=== PATIENT | female | born 1935 | race Caucasian/White ===

== ENCOUNTER 2016-05-14 12:26 | Inpatient (IN) | payer MEDICARE, OTHER ==
[~2016-05-14] VITALS: Ht 170.2 cm; Wt 73.9 kg
[2016-05-14] VITALS (9 sets, daily range): BP systolic 130–150; BP diastolic 65–96; PULSE 85–126; RESP 13–28; O2SAT 89–98
[~2016-05-14 12:26] MED LIST: ALEN35TA31 PO; ASPI-628 PO; ATOR20TA65 PO; CHOL100043 PO; Calcium PO; IRON; LEVO112T4 PO; LIOT5TAB3 PO; MAGN400C PO; MULT-1007 PO; VENL225T3 PO
--- NOTE | 2016-05-14 13:16 | ED.REPORT ---
HPI-General Illness Date of Service May 14, 2016 ED Provider: Dimitri Alford MD 80 year old female with a history of COPD presents to the ER with two weeks of acute on chronic shortness of breath, exacerbated with minimal exertion. Symptoms are relieved with rest. She also states that standing and ambulating elicits increased HR. Associated subjective fever two days ago, now resolved. Patient denies chest pain, cough, lower extremity pain/swelling, and recent immobilization/travel. In mid February 2016 she was treated for COPD, and states that her current symptoms feel similar to her typical COPD exacerbation. Patient is a tangential historian. Nursing Notes Stated Complaint: SHORTNESS OF BREATH Chief Complaint: Respiratory Distress Nursing Notes Reviewed: Yes Allergies: Coded Allergies: Penicillins (Verified Allergy, Unknown, 05/14/16) AMOXOCILLIN amoxicillin (Verified Allergy, Unknown, Rash, 05/14/16) Scheduled Aspirin (Aspirin) 81 Mg Tablet 81 MG PO HS Atorvastatin Calcium (Atorvastatin Calcium) 20 Mg Tablet 20 MG PO HS Budesonide/Formoterol 160-4.5 mcg Inh (Symbicort 160-4.5 mcg Inh) 120 Puff Inhaler 2 PUFF INHALATION BID Calcium Carbonate (Calcium) 600 Mg Tablet 600 MG PO DAILY Cyclosporine (Restasis) 1 Each Droperette 1 EACH OP BID Ferrous Sulfate (Iron) 325 Mg Tablet 625 MG PO DAILY Ipratropium/Albuterol Sulfate (Iprat-Albut 0.5-3(2.5) mg/3 mL Inhalant Soln) 3 Ml Ampul.neb 3 ML IH TID to QID Levothyroxine (Levothyroxine) 137 Mcg Tablet 137 MCG PO DAILY Liothyronine Sodium (Liothyronine Sodium) 5 Mcg Tablet 5 MCG PO DAILY Magnesium Oxide (Magnesium) 500 Mg Capsule 500 MG PO HS Multivitamin (Once Daily) 1 Each Tablet 1 EACH PO DAILY Omeprazole (Omeprazole) 20 Mg Capsule.dr 20 MG PO BID Polyvinyl Alcohol/Povidone/Pf (Refresh Classic Eye Drops) 1 Each Droperette 1 EACH OP BID Venlafaxine ER (Venlafaxine ER) 150 Mg Tab.er.24 150 MG PO HS Scheduled PRN Albuterol HFA (Proair HFA) 8.5 Gm Hfa.aer.ad 2 PUFFS INHALATION Q4H PRN PRN For Shortness of Breath General Time Seen by MD: 13:11 Chief Complaint Other (Shortness of Breath) Hx Obtained From: Patient Arrived By: Walk-in Sudden in Onset?: No Onset Occurred: More than a week ago... (2 weeks) Symptom Duration: Constant Associated with: Reports: Fever (Subjective), Denies: Chest pain, Cough Pertinent Negative: Pt denies other symptoms Relieved by: Rest Context Related History: Reports COPD Similar Sx Previous: Yes Past Medical History Past Medical History Aortic Aneurysm Reports: COPD, Denies: Congestive heart failure Reports: Thyroid disease (Hypothyroid) Past Surgical History Reports: Cholecystectomy Reports: Knee replacement (Left) Smoking History Never Smoker Social History Other Social History: Good social support Ambulatory Status Independent Review of Systems Full Review of Systems Constitutional: Reports: Fever (Subjective) Respiratory: Reports: Dyspnea on exertion, Shortness of breath, Denies: Non-productive cough Cardiovascular: Denies: Chest pain GI: Denies: Nausea, Vomiting Musculoskeletal: Denies: Back pain, Extremity pain, Extremity swelling Neurologic: Denies: Headache Complete sys rev & neg: except as marked. Physical Exam Vital Signs Vital Signs Date Time Temp Pulse Resp B/P Pulse Ox O2 Delivery O2 Flow Rate FiO2 05/14/16 12:28 36.2 105 20 145/96 98 Room Air Initial VS: Reviewed Head / Eyes: Atraumatic, Normocephalic Neck: Supple, Non-tender, Full range of motion Abdomen / GI: Soft, Non-tender, No guarding, No rebound, No distention Extremities: Vascular intact, Neuro intact, No swelling, No tenderness Skin: Warm, Dry, No cyanosis Neurologic: Alert, Oriented, Nonfocal Psychiatric: Mood/affect normal, Behavior normal, Normal thought content Respiratory / Chest: No chest tenderness, No chest wall deformity Diminished Breath Sounds: Positive: Decreased bilateral (Significant) Cardiovascular: Heart rate NL, Regular rhythm, Heart sounds NL, Cap refill not delayed, Peripheral circulation NL Interpretation & Diagnostics Lab Results Interpretation Result Diagram: 05/14/16 1405 05/14/16 1405 Test 05/14/16 14:05 White Blood Count 16.3th/mm3 (3.8-10.1) Red Blood Count 4.06mil/mm3 (3.90-5.20) Hemoglobin 12.4g/dL (12.0-15.6) Hematocrit 37.3% (35.0-46.0) Mean Corpuscular Volume 91.9fL (81-100) Mean Corpuscular Hemoglobin 30.5pg (27.0-35.0) Mean Corpuscular Hemoglobin Concent 33.2% (32.0-37.0) Red Cell Distribution Width 13.3% (12.3-15.4) Platelet Count 325bil/L (150-400) Neutrophils (%) (Auto) 77.3% (40-74) Lymphocytes (%) (Auto) 10.6% (14-46) Monocytes (%) (Auto) 10.3% (4-12) Eosinophils (%) (Auto) 0.1% (0-5) Basophils (%) (Auto) 0.4% (0-3) Sodium Level 137mEq/L (134-144) Potassium Level 4.8mEq/L (3.5-5.2) Chloride Level 97mEq/L (97-108) Carbon Dioxide Level 24mmol/L (18-29) Blood Urea Nitrogen 23mg/dL (8-27) Creatinine 0.86mg/dL (0.57-1.00) Estimat Glomerular Filtration Rate 91mL/min (>59) Glucose Level 106mg/dL (60-99) Calcium Level 9.6mg/dL (8.5-10.1) Total Bilirubin 0.5mg/dL (0.0-1.2) Aspartate Amino Transf (AST/SGOT) 20U/L (0-50) Alanine Aminotransferase (ALT/SGPT) 24U/L (0-32) Alkaline Phosphatase 80U/L (25-165) Troponin T < 0.010ug/L (0.0-0.011) Pro-B-Type Natriuretic Peptide 54.20pg/mL (0-738) Total Protein 7.1g/dL (6.4-8.4) Albumin 4.2g/dL (3.4-5.0) Hold Bowman Top Tube Received (Received) ECG Interpretation ECG Interpretation: Sinus rhythm, rate [address] segment elevation No acute T wave abnormalities Overall poor quality ECG No prior ECG available for comparison Time: 14:25 Interpreted by: ED physician X-Ray Chest Interpretation Chest Xray Interpretation: IMPRESSION: 1. Scattered small bilateral indistinct opacity suggestive of scarring. Consider followup in 3-6 months to demonstrate stability. 2. Findings compatible with COPD. Dictated by: Héctor Schaefer M.D. on 05/14/2016 at 13:17 Approved by: Héctor Schaefer M.D. on 05/14/2016 at 13:27 View: AP & lat Interpretation / Wet Read by: Interpret - Radiologist Re-Eval/Medical Decision Med Decision/Clinical Course 80 year old female with a history of COPD presents to the ER with two weeks of acute on chronic shortness of breath, exacerbated with minimal exertion. Symptoms are relieved with rest. She also states that standing and ambulating elicits increased HR. Associated subjective fever two days ago, now resolved. Patient denies chest pain, cough, lower extremity pain/swelling, and recent immobilization/travel. In mid February 2016 she was treated for COPD, and states that her current symptoms feel similar to her typical COPD exacerbation. Patient is a tangential historian. Upon arrival the patient is tachycardic with a heart rate of 120 and appears in moderate respiratory distress. She initially has good oxygen saturation on room air while at rest. EKG was obtained and interpreted by myself as documented above. CXR was obtained as below: 1. Scattered small bilateral indistinct opacity suggestive of scarring. Consider followup in 3-6 months to demonstrate stability. 2. Findings compatible with COPD. Patient received the below medications: 1L IV fluids 125mg methylprednisolone DuoNeb x2 Laboratory studies were normal as below: Leukocytosis 16.3 CBC normal otherwise Chemistry normal Troponin negative BNP WNL Initially the patient had very poor air movement bilaterally. This improved after nebulizer treatments and steroids though she continued to be in moderate respiratory distress with significant wheezing. Patient was ambulated on pulse oximetry and reported significant dyspnea on exertion with oxygen desaturation into the mid 80s. Overall presentation is at this time consistent with severe COPD exacerbation. I feel that she requires admission at this time. Initial workup for acute coronary syndrome is reassuring. No evidence of pulmonary edema or elevated BNP suggestive of congestive heart failure. Presentation of suggestive of pulmonary embolism. Patient discussed with admitting hospitalist accepted for further management. Source of Hx: Old records Time of Eval: 14:43 Re-Evaluation/Progress Note: Patient is now accompanied by her daughter and a female friend. Updated the daughter on the patient's case and plan of care. Discussed lab and radiology results and need for admission pending road test. Patient is amenable to the plan. All other questions addressed. Consultation : Referral / Consult Name: Anant Weems MD Consulted With: Hospitalist Call Returned at: 15:58 Health Information Systems Technician: Agrees with eval, Agrees with plan, Accepts admit Counseled Regarding: Diagnosis, Lab results, Need for admission Discharge & Departure Primary Impression: COPD with acute exacerbation Additional Impressions: Respiratory distress Hypoxia Disposition: ADMITTED TO HOSPITAL Discharge Condition All VS Reviewed: Yes Condition: Stable Referrals: Rin Escobedo (PCP) Crit Care Except Billable Proc Time Spent: 75-104 minutes Services Performed: Patient management by me, Time spent at bedside, Reviewing test results, Reviewing imaging, Discussing patient care, Documentation in record Scribe Attestation Portions of this note were transcribed by Candi Parker. I, Dr. Alford, personally performed the history, physical exam and medical decision-making; I reviewed and confirmed the accuracy of the information in the transcribed note. Signed by: Catarino Madrid, 05/14/2016 and 15:58 copies to: Rin Escobedo Beck O MD May 14, 2016 13:16 CANDI PARKER May 14, 2016 14:15
--- NOTE | 2016-05-14 13:28 | DRSVH ---
PROCEDURE: X-RAY CHEST, TWO VIEWS ([id number]) INDICATIONS: SHORTNESS OF BREATH TECHNIQUE: 2 views of the chest were acquired. COMPARISON: [facility], CT, CHEST HI-RESOLUTION, 07/24/2013, 9:07. [facility] l, CT, ABD/PELVIS W/CON (PNL), 10/29/2013, 16:37. [facility], CR, CHEST 2VW, 01/16/2012, 2:40 PM. [facility], CR, CHEST 2VW, 02/24/2013, 11:29 AM. [facility], CR, XR CHEST 2VW, 03/12, 17:51. FINDINGS: Surgical changes and devices: None. Lungs and pleura: No pleural effusions or pneumothorax. There are a few indistinct scattered bilate ral opacities in the lung bases which appear similar to the prior studies suggestive of scarring. A small indistinct opacity in the left midlung zone appears slightly increased and may also represent s carring versus an infectious or inflammatory process. There is hyperinflation of the lungs with flat tening of the hemidiaphragms compatible with COPD. No acute consolidation. Mediastinum: Mediastinal contours are normal. Heart size is normal. Bones and chest wall: No suspicious bony abnormalities. Soft tissues appear unremarkable. IMPRESSION: 1. Scattered small bilateral indistinct opacity suggestive of scarring. Consider followup in 3-6 mo nths to demonstrate stability. 2. Findings compatible with COPD. Dictated by: Héctor Schaefer M.D. on 05/14/2016 at 13:17 Approved by: Héctor Schaefer M.D. on 05/14/2016 at 13:27
[2016-05-14 14:19] LABS: BASOPHILS % (AUTO) 0.4 % (0-3); EOSINOPHILS % (AUTO) 0.1 % (0-5); MONOCYTES % (AUTO) 10.3 % (4-12); Mean Corpuscular Hemoglobin 30.5 pg (27.0-35.0); Mean Corpuscular Volume 91.9 fL (81-100); NEUTROPHILS % (AUTO) 77.3 % (40-74); Platelet Count 325 bil/L (150-400)
[2016-05-14] MEDS ORDERED: 0.9% Sodium Chloride 1,000 ML IV ONE (14:20)
[2016-05-14] MEDS ORDERED: Albuterol-Ipratropium 3 mL Inhalation Solution NEB SCH (14:20)
[2016-05-14] MEDS ORDERED: MethylprednisoLONE Sodium Succinate 62.5 mg/mL 2 mL Inj IVPUSH ONE (14:20)
[2016-05-14] MEDS ORDERED: Albuterol-Ipratropium 3 mL Inhalation Solution NEB ONE (14:20)
[2016-05-14 14:43] LABS: TROPONIN T < 0.010 ug/L (0.0-0.011)
[2016-05-14] MEDS ORDERED: Polyethylene Glycol (PEG) 17 Gm Powder PO PRN (16:05)
[2016-05-14] MEDS ORDERED: Alum-Mag Hydrox-Simeth 30 mL Suspension PO PRN (16:05)
[2016-05-14] MEDS ORDERED: Ondansetron 2 mg/mL 2 mL Inj IVPUSH PRN (16:05)
--- NOTE | 2016-05-14 16:20 | NUR ---
Report called from ED nurse. Pt arrived via wc, transferred to bed safely SBA. Pt states she is feeling a bit light of head. She is having hot and cold spurts. Afebrile. Tele placed on pt. SR 60s.
[2016-05-14] MEDS: Albuterol-Ipratropium 3 mL Inhalation Solution NEB SCH ×2 (16:30→19:54)
[2016-05-14] MEDS: Heparin 5,000 Unit/mL Inj SUBQ SCH (17:53)
[2016-05-14] MEDS ORDERED: ASPI-973 PO (18:00)
[2016-05-14] MEDS ORDERED: MAGN500C4 PO (18:00)
[2016-05-14] MEDS ORDERED: MULT-666 PO (18:00)
[2016-05-14] MEDS ORDERED: POLY1DRO OP (18:00)
[2016-05-14] MEDS ORDERED: SYMINH INHALATION (18:00)
[2016-05-14] MEDS ORDERED: LEVO137T2 PO (18:00)
[2016-05-14] MEDS ORDERED: CYCL1DRO OP (18:00)
[2016-05-14] MEDS ORDERED: FERR325T39 PO (18:00)
[2016-05-14] MEDS ORDERED: VENL150T3 PO (18:00)
[2016-05-14] MEDS ORDERED: ALBU8.5H2 INHALATION (18:00)
[2016-05-14] MEDS ORDERED: IPRA3AMP IH (18:00)
[2016-05-14] MEDS ORDERED: OMEP20CA11 PO (18:00)
[2016-05-14] MEDS ORDERED: CALC600T12 PO (18:00)
[2016-05-14 18:31] LABS: APPEARANCE,URINE CLEAR (CLEAR,HAZY); COLOR,URINE YELLOW (YELLOW); OCCULT BLOOD,URINE TRACE (NEGATIVE); UROBILINOGEN,URINE NORMAL (NORMAL)
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
[2016-05-15] VITALS (14 sets, daily range): BP systolic 112–152; BP diastolic 57–74; PULSE 72–102; RESP 16–20; O2SAT 90–97
[2016-05-15] MEDS: Albuterol-Ipratropium 3 mL Inhalation Solution NEB SCH ×6 (00:14→20:27)
[2016-05-15] MEDS: Heparin 5,000 Unit/mL Inj SUBQ SCH ×4 (00:30→23:59)
--- NOTE | 2016-05-15 06:19 | NUR ---
Comfort / mobility Pt continues to have episodes of sweating without fever, pt is uncomfortable, denies pain. Placed on O2 to maintain sat>92%, pulse oximetry; denies SOB. Ambulating to BR with steady gait, appropriate and reliable with call light. Hourly rounding ongoing.
[2016-05-15] MEDS ORDERED: Ipratropium 0.02% 0.5 mg/2.5 mL Inhalation Solution NEB ONE (07:57)
[2016-05-15] MEDS ORDERED: Albuterol 2.5 mg/3 mL Inhalation Solution NEB ONE (07:57)
[2016-05-15] MEDS: predniSONE 20 mg Tablet PO SCH (10:58)
--- NOTE | 2016-05-15 11:56 | CONS ---
[address] [address] CONSULTATION REPORT PATIENT: SANTA DACOSTA : 1935 MR#: [id number] ADMIT: 05/14/2016 JOB ID: [id number] DATE OF SERVICE: 05/15/2016 PULMONARY CONSULTATION: REQUESTING PHYSICIAN: Anant Weems MD REASON FOR CONSULTATION: Acute exacerbation of COPD. HISTORY OF PRESENT ILLNESS: The patient is a 80-year-old female with known COPD who has been getting slowly worse over a year or so. No acute problems. However, in February of this year she developed some increasing shortness of breath. No particular change in terms of cough or sputum production; she just noted that she had more difficulty accomplishing tasks, especially walking her dog, negotiating 20 steps downstairs, and drying her hair after washing it. Also had more problems making the bed. She also noted that her walking tolerance decreased significantly even when stairs were not involved. Was on a few courses of prednisone during this time. Continued using her nebulizer with albuterol. Rare use of ProAir inhaler. Also continued using Spiriva and Symbicort. About four or five days ago she developed chills, had a temperature of 101, and had increasing shortness of breath. No particular change in cough or sputum production. No headache. No sore throat. No rash. No swelling in her legs. Symptoms continued to worsen. Did not have any recurrence of the chills; however, on admission in the emergency department she noticed some chilling and has had a few chills while in the ED. The patient lives in an independent care facility but she is exposed to 60 other residents. All of the other residents are ill with various infections. The patient states she did get her influenza vaccine this year in October. Has had pneumococcal pneumonia 23 vaccine but is scheduled for the pneumococcal pneumonia 13 vaccine. PAST MEDICAL HISTORY: Abdominal aortic aneurysm in need of surgical repair some time in the future. REVIEW OF SYSTEMS: No anginal type chest pain. No chest pain per se. No abdominal pain. Eating fairly well. Weight stable. No difficulty swallowing. No heartburn, though she was recently changed from omeprazole for some concern about GI symptoms. Also suffers from hypothyroidism; that recently was checked and the level increased somewhat. Osteoporosis. Hyperlipidemia. Noted to have peripheral vascular disease in the carotids. FAMILY HISTORY: The patient is adopted. However, she did recently get in touch with her biologic family. Mother of an abdominal aortic aneurysm and brother has an abdominal aortic aneurysm. TOBACCO USE: The patient smoked one pack a day for about 40 years, quitting about 10 years ago. TRAVEL HISTORY: None. SOCIAL HISTORY: The patient lives in her own unit in this assisted living care arrangement. Describes herself as a sedentary. Takes her dog for a walk. No hobbies which expose her to dust, fumes, or solvents. PETS: Dog. 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 OBJECTIVE: Temperature 36.4, pulse 81, respiratory rate 16, blood pressure 136/74, O2 sat on 2 L is 95%. General appearance: Well-developed, well-nourished female sitting in bed. Occasionally quite tearful. Eyes: Conjunctivae pink and moist. Nose: Mild erythema. No edema. Throat: Good oral hygiene. Uvula deshawn in the oropharynx. No oropharyngeal candidiasis. Lymph nodes are not palpable. Thyroid not palpable. Chest: Normal resonance to percussion. Fairly good breath sounds bilaterally. Some scattered crackles mostly at the bases. No use of accessory muscles at rest. Heart: Regular rhythm. Heart tones normal. No S3 or murmur. Abdomen: Soft. Nondistended. Nontender. Liver and spleen not palpable. No masses palpable. Bowel tones present. Extremities: No clubbing, cyanosis, or pretibial edema. Good dorsalis pedis on the right, less so on the left, but good posterior tibials. IMAGING: Chest x-ray shows hyperinflation. There are increased interstitial markings throughout both lung martinez. LABORATORY DATA: Shows a white count of 16,300, 77 polymorphonuclears, 10 lymphs, 10 monocytes. Hemoglobin 12.4. Platelet count 324,000. Lytes are normal. Creatinine 0.8. BUN 23. Calcium is 9.6. Albumin 4.2. Transaminases: Total bilirubin and alkaline phosphatase normal. ProBNP is 54. Troponin-T is undetectable. ASSESSMENT: Chronic obstructive pulmonary disease. Apparently acute exacerbation. Did have chills. The viral respiratory panel is negative. Mycoplasma negative as well. The chest x-ray is a bit "dirtier" than one would expect with pure COPD. However, that has been a somewhat chronic finding and she has a high-resolution CT scan from 2014 which shows some upper lobe emphysematous changes and no other particular problems. Looks a little bit inflammatory to my eye, with maybe some tree in bud changes, but no particular problems. Will need spirometry to tell us where we are in terms of her current function. Will continue on her current medicines. She will need possibly a repeat CT, but that will remain to be seen, depending on pulmonary function tests. She will also need evaluation of O2 needs with exertion. She will need to be instructed in correct use of the inhalers and the spacers. Depending on finances may consider stopping her Spiriva and adding ipratropium to the nebulizer. Much more time-consuming but maybe a cost saving as she has new insurance and not sure if the Spiriva is covered. May need to consider pulmonary rehabilitation as an outpatient. In addition, she does have decreasing exercise tolerance, more short of breath. I think it would be useful to assess left ventricular cardiac function and right-sided cardiac pressures to see if she might be developing pulmonary arterial hypertension. PLAN: 1. Spirometry before and after bronchodilators. 2. Have RT check her use of the inhalers and the spacers. 3. Check O2 requirements with exertion. Might need a nocturnal oxygen study. 4. Echocardiogram to assess LV function as well as RV pressures. 5. Consider pulmonary rehab as an outpatient. Thank you so much, Dr. Weems, for asking us asking us to see this most interesting individual. I will follow her respiratory status closely along with you.
--- NOTE | 2016-05-15 15:17 | PCM.PNMED ---
Subjective Date of Service May 15, 2016 Subjective Patient doing well this morning. Patient is very anxious about the progression of her illness and was in tears. Patient was reassured that her hospital course would be short and that she would be seen by a public works manager before discharge. Patient is otherwise stable. Exam Vital Signs Vital Sign - Last Date Time Temp Pulse Resp B/P Pulse Ox O2 Delivery O2 Flow Rate FiO2 05/15/16 14:50 36.3 83 16 116/67 94 Room Air 05/15/16 08:13 2.00 Intake and Output 05/14/16 05/14/16 05/15/16 Cumulative From/Thru 15:00 23:00 07:00 05/14/16 12:28 - 05/15/16 05:06 Intake Total 1000 ml 200 ml 720 ml 1920 ml Output Total 450 ml 400 ml 850 ml Balance 1000 ml -250 ml 320 ml 1070 ml Intake Oral 200 ml 720 ml 920 ml IV Total 1000 ml 1000 ml Output Urine Total 450 ml 400 ml 850 ml # Voids 2 2 # Bowel Movements 0 0 Exam Exam General: No acute distress, well-developed, well-nourished, appropriately interactive HEENT: Normocephalic, atraumatic. External ears without defect. Pupils equal, round, and reactive to light and accommodation. Moist conjunctivae. Oropharynx with moist mucosa. Neck: Supple with full range of motion.No lymphadenopathy Cardiovascular: Regular rate and rhythm with no murmurs, rubs, or gallops appreciated Pulmonary: Clear to auscultation bilaterally some scattered wheezes. Good air exchange. Normal respiratory effort with no use of accessory muscles. Abdomen: Bowel tones present. Soft, nontender, nondistended. Ext: No edema or loss of motor/.sensory function Lab and Diagnostics Result Diagram: 05/14/16 1405 05/14/16 1405 X-Rays, CTs and MRIs X-RAY CHEST, TWO VIEWS 05/14 IMPRESSION: 1. Scattered small bilateral indistinct opacity suggestive of scarring. Consider followup in 3-6 months to demonstrate stability. 2. Findings compatible with COPD. Dictated by: Héctor Schaefer M.D. on 05/14/2016 at 13:17 Approved by: Héctor Schaefer M.D. on 05/14/2016 at 13:27 Assessment & Plan Nadira La is a 80 year old female with COPD, AAA, Hypothyroidism who presents to [facility] emergency department with two weeks of dyspnea and coughing 1. Acute COPD exacerbation. Present on admission Likely due to a viral respiratory infection. - systemic steroids, tapered o Prednisone 40 mg daily - c/w azithromycin - will follow up Blood cultures - scheduled DuoNeb treatments - Pulm consult appreciated- will follow up results of echo and pfts 2. Hyperlipidemia - continue Lipitor 20 mg daily 3. Hypothyroidism -continuing Liothyronine 5 mcg daily 4 Depression - continuing Effexor daily 5 Aortic aneurysm with Peripheral vascular disease. Last February, imaging confirmed the Aneurysm size has meet criteria for repair - referral to [facility] for repair - continue Aspirin daily for antiplatelet therapy - maintain good BP control - Acetaminophen as needed for mild pain/fever/headache - Bowel regimen as needed - Antiemetic as needed Patient admitted under inpatient status with expected length of stay > 2 midnights for severity of present symptoms, complexities of treatment plan and risk for adverse event . VTE Mechanical Devices: Intermittant Pneumatic CD Resuscitation Status: CPR: Attempt Resuscitation Shen Garcia MD May 15, 2016 15:17
--- NOTE | 2016-05-15 17:08 | NUR ---
Case Management: Attempted to provide IMM at 1538, pt having an Echo. Will try again later. Gordon Hayes RN Addendum: 05/15/16 at 2105 by GORDON HAYES Explained IMM to patient at 2039, all questions answered. Signed original in chart, copy given to patient. Gordon Hayes RN
--- NOTE | 2016-05-15 17:59 | DRSVH ---
[facility] [address] [place] [address] Echocardiogram Report Name: SANTA DACOSTA HStudy Date: 05/15/2016 Height: 67 in Hospital Exam Location: [facility] Weight: 162 lb Gender: Female BSA: 1.8 m2 : 1935 Age: 80 yrs BP: 136/74 mm Hg Reason For Study: Dyspnea History: COPD Ordering Physician: Micah Tran Performed By: Constance Kaufman Referring Physician: Alem Fuller Interpretation Summary The left ventricle is normal in size. Left ventricular wall thickness is borderline increased. The ejection fraction is estimated to be 60-65%. Assessment of diastolic parameters indicates a relaxation abnormality of the left ventricle, consistent with normal filling pressures. The right ventricle is normal in size and function. Pulmonary artery pressures cannot be estimated because of the lack of a measurable TR jet velocity. The IVC is of normal diameter and collapses greater than 50% with a sniff. This suggests a low right atrial pressure of 3 mm Hg. There is no significant valvular heart disease. No other echocardiographic abnormalities seen. Compared to the prior echo report on 07/02/2013, there is no significant change. Procedure: A two-dimensional transthoracic echocardiogram with color flow and Doppler was performed. The study quality was technically adequate. Comparison is made with the echocardiogram of 07/02/2013. The patient was in normal sinus rhythm during the exam. Left Ventricle: The left ventricle is normal in size. Left ventricular wall thickness is borderline increased. The ejection fraction is estimated to be 60-65%. Assessment of diastolic parameters indicates a relaxation abnormality of the left ventricle, consistent with normal filling pressures. Right Ventricle: The right ventricle is normal in size and function. Atria: The left atrium is borderline dilated. Right atrial size is normal. There is no Doppler evidence for an interatrial shunt. Mitral Valve: There is mild mitral annular calcification. The mitral valve leaflets are mildly calcified. Tricuspid Valve: Pulmonary artery pressures cannot be estimated because of the lack of a measurable TR jet velocity. Pulmonic Valve: The pulmonic valve is not well seen, but is grossly normal. Great Vessels: The inferior vena cava appeared normal. The IVC is of normal diameter and collapses greater than 50% with a sniff. This suggests a low right atrial pressure of 3 mm Hg. Pericardium/ Pleura There is no pericardial effusion. MMode/2D Measurements & Calculations LVIDd: 3.9 cm LA A2 area RA long axis LVOT diam: 2.2 cm IVSd: 1.1 cm AoV Openin.9 cm LVPWd: 0.78 cm RA area Ao root diam: 3.3 cm LA A4 area Aortic Jxn: 2.7 cm : 12.9 cm asc Aorta Diam LA length (vol) RA vol: 29.6 ml RA Ao Arch Diam (Prox LA vol: 63.7 ml : 16.0 mm2 Trans): 2.5 cm LA vol index IVC diam: 1.4 cm LV martinez. diameter/BSA RVD1 (basal) TAPSE: 2.5 cm (cm/m^2): 2.1 Doppler Measurements & Calculations Ao V2 max MV E max jeremiah MV E/A: 0.69 PA V2 max : 132.4 cm/sec : 98.0 cm/sec Med Peak E' Jeremiah : 102.4 cm/sec Ao max PG MV A max jeremiah PA mean PG : 7.0 mmHg : 141.1 cm/sec E/E' med: 15.1 Ao mean PG MV P1/2t: 110.9 msec Lat Peak E' Jeremiah PA Accel Time : 0.10 sec LVOT Max Jeremiah E/E' lat: 12.8 : 102.9 cm/sec E/e' average: 13.9 Pulm A Revs Dur KIERAN(I,D): 3.8 cm sev ratio MV A dur: 0.12 sec MV dec time MV P1/2t max jeremiah Ao V2 mean LV V1 max PG : 0.38 sec : 77.0 cm/sec MVA(P1/2t): 2.0 cm2 Ao V2 VTI: 24.8 cm LV V1 VTI KIERAN(V,D): 3.0 cm2 : 24.7 cm PA V2 mean KIERAN indexed to BSA Pulm Kelley Revs Dur - MV : 69.2 cm/sec (cm^2/m^2): 2.1 A Dur: 0.00 msec Reading Physician:05:58 PM
--- NOTE | 2016-05-15 19:01 | NUR ---
anxiety pt having severe anxiety, jittery, pacing, teary and emotional. She blames the Prednisone she took this am. Call to Dr Garcia, he gave order for PRN Lorazepam which was very helpful for her
[2016-05-15] MEDS: Venlafaxine XR 75 mg ER24 Capsule PO SCH (21:39)
[2016-05-16] VITALS (9 sets, daily range): BP systolic 123–144; BP diastolic 64–73; PULSE 80–98; RESP 16–20; O2SAT 94–98
--- NOTE | 2016-05-16 05:04 | NUR ---
Respiratory At HS pt became very SOB with elevated HR after return from [place]. Worked with pursed lip breathing until improved. Oximetry shows intermittent desat to low 80s after falling asleep, placed on 1 L O2. Hourly rounding ongoing.
[2016-05-16] MEDS: Albuterol-Ipratropium 3 mL Inhalation Solution NEB SCH ×5 (05:40→19:31)
[2016-05-16 06:08] LABS: BASOPHILS % (AUTO) 0.1 % (0-3); EOSINOPHILS % (AUTO) 0.1 % (0-5); MONOCYTES % (AUTO) 9.6 % (4-12); Mean Corpuscular Hemoglobin 30.8 pg (27.0-35.0); Mean Corpuscular Volume 93.9 fL (81-100); NEUTROPHILS % (AUTO) 78.6 % (40-74); Platelet Count 343 bil/L (150-400)
[2016-05-16] MEDS: predniSONE 20 mg Tablet PO SCH (08:43)
[2016-05-16] MEDS: Heparin 5,000 Unit/mL Inj SUBQ SCH ×2 (08:54→17:15)
--- NOTE | 2016-05-16 12:18 | PCM.PNMED ---
Subjective Date of Service May 16, 2016 Subjective Pt seen and examined this morning. Patients symptoms are improved however patient is still anxious about going home alone. Patients respiratory symptoms have dissipated however patient becomes very anxious and has a difficult time breathing as a result.Patient is otherwise doing well. Exam Vital Signs Vital Sign - Last Date Time Temp Pulse Resp B/P Pulse Ox O2 Delivery O2 Flow Rate FiO2 05/16/16 09:24 80 16 95 Room Air 05/16/16 09:03 134/70 05/16/16 05:54 37.0 05/16/16 05:46 2.00 Intake and Output 05/15/16 05/15/16 05/16/16 Cumulative From/Thru 15:00 23:00 07:00 05/14/16 12:28 - 05/16/16 05:53 Intake Total 640 ml 1050 ml 3610 ml Output Total 650 ml 850 ml 2350 ml Balance -10 ml 200 ml 1260 ml Intake Oral 640 ml 1050 ml 2610 ml IV Total 1000 ml Output Urine Total 650 ml 850 ml 2350 ml # Voids 2 # Bowel Movements 0 0 0 Exam General: No acute distress, well-developed, well-nourished, appropriately interactive HEENT: Normocephalic, atraumatic. External ears without defect. Pupils equal, round, and reactive to light and accommodation. Moist conjunctivae. Oropharynx with moist mucosa. Neck: Supple with full range of motion.No lymphadenopathy Cardiovascular: Regular rate and rhythm with no murmurs, rubs, or gallops appreciated Pulmonary: Clear to auscultation bilaterally some scattered wheezes. Good air exchange. Normal respiratory effort with no use of accessory muscles. Abdomen: Bowel tones present. Soft, nontender, nondistended. Ext: No edema or loss of motor/.sensory function Lab and Diagnostics Result Diagram: 05/16/1652405/16/16 0525 X-Rays, CTs and MRIs X-RAY CHEST, TWO VIEWS 05/14 IMPRESSION: 1. Scattered small bilateral indistinct opacity suggestive of scarring. Consider followup in 3-6 months to demonstrate stability. 2. Findings compatible with COPD. Dictated by: Héctor Schaefer M.D. on 05/14/2016 at 13:17 Approved by: Héctor Schaefer M.D. on 05/14/2016 at 13:27 Assessment & Plan Nadira La is a 80 year old female with COPD, AAA, Hypothyroidism who presents to [facility] emergency department with two weeks of dyspnea and coughing 1. Acute COPD exacerbation. Present on admission Likely due to a viral respiratory infection. - systemic steroids, tapered to Prednisone 40 mg daily - c/w azithromycin last dose today - awaiting results of PFT test - ativan on board for anxiety driven tachypnea 2. Hyperlipidemia - continue Lipitor 20 mg daily 3. Hypothyroidism -continuing Liothyronine 5 mcg daily 4 Depression - continuing Effexor daily 5 Anxiety - pt is having occasional runs of anxiety which she attributes to steroids - pt was told that steroids can cause some emotional lability but not to the degree the patient is feeling - will ask patient to make referral for psychiatrist as an out patient 6 Aortic aneurysm with Peripheral vascular disease. Last February, imaging confirmed the Aneurysm size has meet criteria for repair - referral to [facility] for repair - continue Aspirin daily for antiplatelet therapy - maintain good BP control - Acetaminophen as needed for mild pain/fever/headache - Bowel regimen as needed - Antiemetic as needed Patient admitted under inpatient status with expected length of stay > 2 midnights for severity of present symptoms, complexities of treatment plan and risk for adverse event . VTE Mechanical Devices: Intermittant Pneumatic CD Resuscitation Status: CPR: Attempt Resuscitation Shen Garcia MD May 16, 2016 12:18
--- NOTE | 2016-05-16 14:04 | NUR ---
Social Work-initial assessment/readiness for discharge: Data:See initial assessment. Pt is a 80 y/o female who was admitted on 05/14/16 for COPD exacerbation per H&P. Pt's insurance is [facility] and PCP is Alem Fuller MD. EMR Reviewed. Pt's readmission score is 6-high risk. SW met with pt at bedside, SW role explained. Pt is alert and oriented x3. Pt resides at home alone where she remains independent with ADLs. Pt uses no DME at home and does drive. Pt has no HH or SNF history. Pt does have [employer] insurance, but no VA benefits. SW discussed DPOA/ advanced directive, pt states she has completed this, SW encouraged pt to bring a copy into the hospital. would like pt to see psychiatry outpt for anxiety. SW discussed with pt and she is agreeable to resources which SW have provided for both psychiatry and counseling. Per RN notes, pt has been up independent in her room. Pt's granddaughter to provide transport home at discharge. No anticipated discharge needs. SW will continue to follow if needs arise. Assessment:Pt who is independent at baseline. Plan:Pt to discharge home when medically stable via POV. Psychiatry and counseling resources have been provided. No anticipated discharge needs. SW will continue to follow if needs arise. KOKO Jarrell Addendum: 05/16/16 at 1410 by EVELIN LARA SS Amended: Links added.
[2016-05-16] MEDS: Pantoprazole 20 mg ER24 Tablet PO SCH (14:32)
--- NOTE | 2016-05-16 18:15 | NUR ---
anxiety/respiratory pt is much calmer today, breathing slightly labored with exertion, up in room some independently, RA
--- NOTE | 2016-05-16 19:33 | PROG NOTE ---
[address] [address] PROGRESS NOTE PATIENT: SANTA DACOSTA : 1935 MR#: [id number] ADMIT: 05/14/2016 JOB ID: [id number] DATE: 05/16/2016 PULMONARY FOLLOWUP NOTE: PROBLEM: Acute exacerbation of COPD. SUBJECTIVE: Feeling better today. Her tearfulness is somewhat better, though she still has some problem with it. Apparently walked with the respiratory therapist and lowest saturation was 92%. Did reasonably well, though she was tired. She finds that more intense exertion causes significant dyspnea. Also causes coughing. OBJECTIVE: Afebrile. Pulse 80 to high 90s, respiratory rate 16 to 20, blood pressure 144/64. O2 sat on room air is 94%. O2 sat on room air with exertion is 93%. General appearance: More comfortable appearing. More composed. Speaking easily. Chest has fairly good breath sounds bilaterally. Mild end-expiratory wheezes, maybe more so at the right base posteriorly. Deep breaths do not provoke significant coughing, though she does cough on occasion after deep breaths. No use of accessory muscles. Heart: Regular rhythm. Heart tones normal. Abdomen: Soft. Bowel tones present. LABORATORY DATA: Spirometry at the bedside was performed before and after bronchodilators. Spirometry is not available, though as I recall it showed moderate airways obstruction without evidence for immediate response to inhaled bronchodilators. ASSESSMENT: Acute exacerbation of chronic obstructive pulmonary disease. Feeling better. Slowly improving. I had a long discussion with the patient in the presence of her daughter. Numerous questions answered. Basically outlined the normal course of an acute exacerbation of chronic obstructive pulmonary disease. Discussed treatment options and monitoring techniques. Discussed avoidance of colleagues with respiratory tract infections. Use of nebulizer, steroids, and her other medications. The patient is scheduled to see the vascular surgeon at the end of next month regarding the abdominal aortic aneurysm. At that time should have some specific details outlined. PLAN: 1. Maintain nebulized bronchodilators. 2. Taper steroids. 3. Numerous questions answered regarding logistical matters, side effects of medications.
[2016-05-16] MEDS: Venlafaxine XR 75 mg ER24 Capsule PO SCH (21:26)
[2016-05-17] MEDS: Heparin 5,000 Unit/mL Inj SUBQ SCH ×3 (00:35→16:27)
--- NOTE | 2016-05-17 03:18 | NUR ---
Activity Patient up independently in room w/o issue. Gait steady. Denies lightheadedness/dizziness. States SOB has significantly improved since admit. No c/o pain or discomfort. No s/sx of anxiety this shift. Using call light appropriately for needs. Pleasant and cooperative with care.
[2016-05-17 05:35] VITALS: BP 150/69; PULSE 74; RESP 18; O2SAT 96
[2016-05-17 06:20] LABS: BASOPHILS % (AUTO) 0.2 % (0-3); EOSINOPHILS % (AUTO) 0.3 % (0-5); Mean Corpuscular Hemoglobin 30.2 pg (27.0-35.0); Mean Corpuscular Volume 93.9 fL (81-100); NEUTROPHILS % (AUTO) 68.2 % (40-74); Platelet Count 336 bil/L (150-400)
--- NOTE | 2016-05-17 07:17 | NUR ---
Spirometry Results Completed 05/15/16 by Josi Cardona, LEATHER POLISHER Report in paper chart under REPORTS/OTHER
[2016-05-17] MEDS: Pantoprazole 20 mg ER24 Tablet PO SCH (07:46)
--- NOTE | 2016-05-17 08:07 | PCM.PNMED ---
Subjective Date of Service May 17, 2016 Subjective Patient had been ambulating to the restroom and is short of breath. She denies any chest pain. She does note that she is feeling better than when she came in. She is having some concerns about going home alone since with minimal activity she gets dyspneic. Exam Vital Signs Vital Sign - Last Date Time Temp Pulse Resp B/P Pulse Ox O2 Delivery O2 Flow Rate FiO2 05/17/16 05:35 36.5 74 18 150/69 96 Room Air 05/16/16 05:46 2.00 Intake and Output 05/16/16 05/16/16 05/17/16 Cumulative From/Thru 15:00 23:00 07:00 05/14/16 12:28 - 05/17/16 05:34 Intake Total 1770 ml 1050 ml 6430 ml Output Total 2350 ml Balance 1770 ml 1050 ml 4080 ml Intake Oral 1770 ml 1050 ml 5430 ml IV Total 1000 ml Output Urine Total 2350 ml # Voids 5 3 10 # Bowel Movements 0 0 Exam Constitutional: Elderly woman who is short of breath Head: Normocephalic atraumatic Eyes: PERRLA DC EOMI Mouth: No lesions Neck: No adenopathy Chest: Decreased breath sounds diffusely but no wheezing noted Cor: Regular rate and rhythm S1-S2 without murmur Abdomen: Soft nontender bowel sounds present Extremities: No pedal edema Neuro: Alert and oriented 3, motor strength is intact bilaterally Lab and Diagnostics Result Diagram: 05/17/16 0530 05/17/16 0530 X-Rays, CTs and MRIs X-RAY CHEST, TWO VIEWS 05/14 IMPRESSION: 1. Scattered small bilateral indistinct opacity suggestive of scarring. Consider followup in 3-6 months to demonstrate stability. 2. Findings compatible with COPD. Dictated by: Héctor Schaefer M.D. on 05/14/2016 at 13:17 Approved by: Héctor Schaefer M.D. on 05/14/2016 at 13:27 Assessment & Plan Nadira La is a 80 year old female with COPD, AAA, Hypothyroidism who presents to [facility] emergency department with two weeks of dyspnea and coughing 1. Acute COPD exacerbation. Present on admission Likely due to a viral respiratory infection. - systemic steroids, tapered to Prednisone 40 mg daily - c/w azithromycin last dose today - awaiting results of PFT test - ativan on board for anxiety driven tachypnea 2. Hyperlipidemia - continue Lipitor 20 mg daily 3. Hypothyroidism -continuing Liothyronine 5 mcg daily and levothyroxine daily -We will check free T3 and free T4. TSH is in normal range but towards lower end. 4 Depression - continuing Effexor daily 5 Anxiety - pt is having occasional runs of anxiety which she attributes to steroids - pt was told that steroids can cause some emotional lability but not to the degree the patient is feeling - will ask patient to make referral for psychiatrist as an out patient 6 Aortic aneurysm with Peripheral vascular disease. Last February, imaging confirmed the Aneurysm size has meet criteria for repair - referral to [facility] for repair - continue Aspirin daily for antiplatelet therapy - maintain good BP control 7. Discharge planning We will obtain discharge planning consult for her concerns regarding her living alone without much support. - Acetaminophen as needed for mild pain/fever/headache - Bowel regimen as needed - Antiemetic as needed Patient admitted under inpatient status with expected length of stay > 2 midnights for severity of present symptoms, complexities of treatment plan and risk for adverse event . VTE Mechanical Devices: Intermittant Pneumatic CD Resuscitation Status: CPR: Attempt Resuscitation Time spent 30 minutes Mimi Banks MD May 17, 2016 08:07
[2016-05-17 08:36] VITALS: BP 138/62; PULSE 72; RESP 16; O2SAT 97
[2016-05-17 08:50] VITALS: PULSE 77; RESP 16; O2SAT 98
[2016-05-17] MEDS: Albuterol-Ipratropium 3 mL Inhalation Solution NEB SCH ×3 (08:50→16:30)
[2016-05-17] MEDS: predniSONE 20 mg Tablet PO SCH (09:26)
[2016-05-17 13:01] VITALS: BP 126/63; PULSE 86; RESP 16; O2SAT 97
[2016-05-17 13:09] VITALS: PULSE 83; RESP 16; O2SAT 98
--- NOTE | 2016-05-17 13:49 | NUR ---
Evaluation completed. Please go to "Notes" then click on "Assessments and Notes" (bottom left corner of screen). Then select appropriate discipline tab on top of screen.
--- NOTE | 2016-05-17 13:52 | NUR ---
Social Work Discharge: SW met with patient at bedside to discuss discharge plan. Patient states residing home alone at [facility]. Patient states being independent with care needs at home. Patient expressed concerns with living independently. Patient participated with therapy today and ambulating 250ft. Recommendations for outpt therapy at discharge. Patient states being in agreement to service arrangements. SW discussed alternative support via caregiver support if assistance is needed. Resource handbook provided. SW to follow. PLAN: Home alone at [facility] via POV. Resource handbook provided for additional home assistance. Follow up with outpt therapy center at discharge. No other anticipated discharge needs June SUTHERLAND
--- NOTE | 2016-05-17 15:07 | PCM.DIMED ---
Discharge Instructions Date of Service May 17, 2016 Dates of Hospitalization May 14, 2016 at 15:09 Discharge Diagnosis Discharge Diagnosis COPD exacerbation Diet Heart Healthy Activity Other (progress activity as tolerated) Mimi Banks MD May 17, 2016 15:07
[2016-05-17] MEDS ORDERED: PRED-508 PO (15:12)
[2016-05-17] MEDS ORDERED: IPRA3AMP IH (15:12)
[2016-05-17] MEDS ORDERED: ALBU2.5V4 INHALATION (15:13)
--- NOTE | 2016-05-17 15:19 | PCM.DC.MED ---
Discharge Summary Date of Service May 17, 2016 Dates of Hospitalization Date of Hospital Admission May 14, 2016 at 15:09 Date of Discharge: May 17, 2016 Providers: Admitting Physician: Anant Weems MD Primary Care Physician: Rin Escobedo Attending Physician: Anant Weems MD Diagnosis at Time of Discharge Diagnosis at Time of Discharge COPD exacerbation Consultations Pulmonary Procedures XRay, CTs & MRIs X-RAY CHEST, TWO VIEWS 05/14 IMPRESSION: 1. Scattered small bilateral indistinct opacity suggestive of scarring. Consider followup in 3-6 months to demonstrate stability. 2. Findings compatible with COPD. Dictated by: Héctor Schaefer M.D. on 05/14/2016 at 13:17 Approved by: Héctor Schaefer M.D. on 05/14/2016 at 13:27 Brief History Nadira La is a 80 year old female with COPD, AAA, Hypothyroidism who presents to [facility] emergency department with two weeks of dyspnea and coughing Patient reporting she has been having dyspnea issues since mid February when she was diagnosed with COPD exacerbation then she felt better but then recently she developed chills and subjective fever, persistent dry cough and weakness. Symptoms are exacerbated with minimal exertion and relieved with rest. Denies any leg swelling. She also states that standing and ambulating elicits tachycardia. Patient denies chest pain, lower extremity pain/swelling, and recent immobilization/travel. She tried neb treatments at home with no improvement. She has difficulty using her Symbicort, she cannot inhale deeply during administration as it causes her to cough even more Previous smoker. Last Pulmonary function test in 2010 (showed moderate obstructive airway disease with some moderate air trapping). she has not seen a Quiller Operator in years. She has seen Dr Denton in 2013. Case discussed with Dr Alford, failed road test despite getting DuNebs and Solu-Medrol 125 mg IV and will be admitted Hospital Course Nadira La is a 80 year old female with COPD, AAA, Hypothyroidism who presents to [facility] emergency department with two weeks of dyspnea and coughing 1. Acute COPD exacerbation. Present on admission Likely due to a viral respiratory infection. - systemic steroids, tapered to Prednisone 40 mg daily - c/w azithromycin last dose yesterday - awaiting results of PFT test - ativan on board for anxiety driven tachypnea -We will discharge to home on prednisone 40 mg by mouth daily 4 days and 20 mg by mouth daily 3 days. -We will also discharge her to home on a dual nebs 4 times a day and albuterol nebs when necessary -Dr. Palomino and is to arrange for an outpatient bleach packer appointment. 2. Hyperlipidemia - continue Lipitor 20 mg daily 3. Hypothyroidism -continuing Liothyronine 5 mcg daily and levothyroxine daily -We will check free T3 and free T4. TSH is in normal range but towards lower end. 4 Depression - continuing Effexor daily 5 Anxiety - pt is having occasional runs of anxiety which she attributes to steroids 6 Aortic aneurysm with Peripheral vascular disease. Last February, imaging confirmed the Aneurysm size has meet criteria for repair - referral to [facility] for repair - continue Aspirin daily for antiplatelet therapy - maintain good BP control 7. Discharge planning We will obtain discharge planning consult for her concerns regarding her living alone without much support. - Acetaminophen as needed for mild pain/fever/headache - Bowel regimen as needed - Antiemetic as needed Patient admitted under inpatient status with expected length of stay > 2 midnights for severity of present symptoms, complexities of treatment plan and risk for adverse event . Exam Vital Signs (Last) Date Time Temp Pulse Resp B/P Pulse Ox O2 Delivery O2 Flow Rate FiO2 05/17/16 13:09 83 16 98 Room Air 05/17/16 13:01 36.5 126/63 05/16/16 05:46 2.00 Test 05/14/16 14:05 05/14/16 17:58 05/16/16 05:25 05/17/16 05:30 Troponin T < 0.010ug/L (0.0-0.011) Pro-B-Type Natriuretic Peptide 54.20pg/mL (0-738) Thyroid Stimulating Hormone (TSH) 0.821uIU/mL (0.450-4.500) Hold Bowman Top Tube Received (Received) Urine Color Yellow (YELLOW) Urine Appearance Clear (CLEAR,HAZY) Urine pH 6.0 (5.0-8.0) Urine Specific [place] 1.010 (1.003-1.035) Urine Protein Negativemg/dL (NEG,TRACE) Urine Glucose (UA) Negativemg/dL (NEGATIVE) Urine Ketones Negativemg/dL (NEGATIVE) Urine Occult Blood Trace (NEGATIVE) Urine Nitrite Negative (NEGATIVE) Urine Bilirubin Negative (NEGATIVE) Urine Urobilinogen Normalmg/dL (NORMAL) Urine Leukocyte Esterase Negative (NEGATIVE) Urine RBC 0-2/hpf (0-2) Urine WBC 0-5/hpf (0-5) Urine Epithelial Cells None/hpf (NONE-MOD) Urine Crystals None seen (NONE SEEN) Urine Bacteria None/hpf (NONE-FEW) Urine Hyaline Casts None/lpf (NONE) Urine Granular Casts None seen (NONE SEEN) Urine Waxy Casts None seen (NONE SEEN) Urine Red Blood Cell Casts None seen (NONE SEEN) Urine White Blood Cell Casts None seen (NONE SEEN) Urine Mucus None seen (None Seen) Urine Trichomonas None seen (NONE SEEN) Urine Yeast None (NONE SEEN) Urinalysis Comment None Urine Culture Reflexed Not indicated Total Bilirubin 0.2mg/dL (0.0-1.2) Aspartate Amino Transf (AST/SGOT) 13U/L (0-50) Alanine Aminotransferase (ALT/SGPT) 20U/L (0-32) Alkaline Phosphatase 87U/L (25-165) Total Protein 6.0g/dL (6.4-8.4) Albumin 3.8g/dL (3.4-5.0) White Blood Count 11.6th/mm3 (3.8-10.1) Red Blood Count 3.44mil/mm3 (3.90-5.20) Hemoglobin 10.4g/dL (12.0-15.6) Hematocrit 32.3% (35.0-46.0) Mean Corpuscular Volume 93.9fL (81-100) Mean Corpuscular Hemoglobin 30.2pg (27.0-35.0) Mean Corpuscular Hemoglobin Concent 32.2% (32.0-37.0) Red Cell Distribution Width 13.2% (12.3-15.4) Platelet Count 336bil/L (150-400) Neutrophils (%) (Auto) 68.2% (40-74) Lymphocytes (%) (Auto) 19.4% (14-46) Monocytes (%) (Auto) 11.0% (4-12) Eosinophils (%) (Auto) 0.3% (0-5) Basophils (%) (Auto) 0.2% (0-3) Sodium Level 141mEq/L (134-144) Potassium Level 4.3mEq/L (3.5-5.2) Chloride Level 102mEq/L (97-108) Carbon Dioxide Level 26mmol/L (18-29) Blood Urea Nitrogen 22mg/dL (8-27) Creatinine 0.99mg/dL (0.57-1.00) Estimat Glomerular Filtration Rate 78mL/min (>59) Glucose Level 101mg/dL (60-99) Calcium Level 9.0mg/dL (8.5-10.1) Free Thyroxine 1.34ng/dL (0.82-1.77) Discharge Medications Discharge Medications Aspirin (Aspirin) 81 Mg Tablet 81 MG PO HS (Reported) Atorvastatin Calcium (Atorvastatin Calcium) 20 Mg Tablet 20 MG PO HS (Reported) Calcium Carbonate (Calcium) 600 Mg Tablet 600 MG PO DAILY (Reported) Cyclosporine (Restasis) 1 Each Droperette 1 EACH OP BID (Reported) Ferrous Sulfate (Iron) 325 Mg Tablet 625 MG PO DAILY (Reported) Ipratropium/Albuterol Sulfate (Iprat-Albut 0.5-3(2.5) mg/3 mL Inhalant Soln) 3 Ml Ampul.neb 3 ML IH QID Prescribed by: MIMI BANKS MD Levothyroxine (Levothyroxine) 137 Mcg Tablet 137 MCG PO DAILY (Reported) Liothyronine Sodium (Liothyronine Sodium) 5 Mcg Tablet 5 MCG PO DAILY (Reported ) Magnesium Oxide (Magnesium) 500 Mg Capsule 500 MG PO HS (Reported) Multivitamin (Once Daily) 1 Each Tablet 1 EACH PO DAILY (Reported) Omeprazole (Omeprazole) 20 Mg Capsule.dr 20 MG PO BID (Reported) Polyvinyl Alcohol/Povidone/Pf (Refresh Classic Eye Drops) 1 Each Droperette 1 EACH OP BID (Reported) Prednisone (Deltasone) 20 Mg Tablet 40 MG PO DAILY Prescribed by: MIMI BANKS MD Venlafaxine ER (Venlafaxine ER) 150 Mg Tab.er.24 150 MG PO HS (Reported) As needed Albuterol HFA (Proair HFA) 8.5 Gm Hfa.aer.ad 2 PUFFS INHALATION Q4H PRN PRN For Shortness of Breath (Reported) Albuterol Neb Soln (Albuterol Neb Soln) 2.5 Mg/3 Ml Vial.neb 2.5 MG INHALATION Q4H PRN PRN For Wheezing Prescribed by: MIMI BANKS MD Followup Plan Disposition: Home Follow-up plan Dr. Palomino, inpatient bleach packer, is to arrange for outpatient pulmonary follow-up. Discharge Diet: Heart Healthy Discharge Activity: Other (progress activity as tolerated) Time spent 60 minutes Mimi Banks MD May 17, 2016 15:19
--- NOTE | 2016-05-17 16:47 | NUR ---
Discharge Orders for discharge were received. The patient was made aware of the plan to discharge and was agreeable to go. The patient was given information regarding her diagnosis and treatment, signs and symptoms to be aware of, follow up instructions, information on her medications and discharge instruction related to her diagnosis. The patient signified understanding of this information and her asymptomatic IV was removed intact. The patient's scripts were faxed to her preferred pharmacy. The patient was then dressed in her own clothing and her belongings were gathered. The patient then ambulated to the main entrance where a private vehicle was waiting to pick her up. At the time of discharge the patient was alert and oriented, with no complaint of shortness of breath, chest pain, nausea or other difficulty.
[2016-05-17 17:05] VITALS: PULSE 82; RESP 16; O2SAT 98
== END 2016-05-17 16:45 | disposition home or self-care (01) | DRG 192 ==
LOC: SED 12:26 → OSC 15:09 → OBSVTOIN 15:09
PROVIDERS: ADMIT Hospitalist; ATTEND Hospitalist
DX: J44.0 Chronic obstructive pulmonary disease with (acute) lower respiratory infection (principal); E03.9 Hypothyroidism, unspecified; E78.5 Hyperlipidemia, unspecified; K57.90 Diverticulosis of intestine, part unspecified, without perforation or abscess without bleeding; F32.9 Major depressive disorder, single episode, unspecified; I73.9 Peripheral vascular disease, unspecified; F41.9 Anxiety disorder, unspecified; T38.0X5A Adverse effect of glucocorticoids and synthetic analogues, initial encounter; I71.4 Abdominal aortic aneurysm, without rupture; Z79.51 Long term (current) use of inhaled steroids; Z88.0 Allergy status to penicillin; Z79.82 Long term (current) use of aspirin; Z87.891 Personal history of nicotine dependence

== ENCOUNTER 2016-11-17 08:03 | Emergency (ER) | payer MEDICARE ==
[~2016-11-17] VITALS: Ht 170.2 cm; Wt 68.2 kg
[~2016-11-17 08:03] MED LIST changes: +ALBU2.5V4 INHALATION; +ALBU8.5H2 INHALATION; -ALEN35TA31 PO; -ASPI-628 PO; +ASPI-973 PO; +CALC600T12 PO; -CHOL100043 PO; +CYCL1DRO OP; -Calcium PO; +FERR325T40 PO; +IPRA3AMP IH; -IRON; -LEVO112T4 PO; +LEVO137T2 PO; -MAGN400C PO; +MAGN500C4 PO; -MULT-1007 PO; +MULT-666 PO; +OMEP20CA11 PO; +POLY1DRO OP; +PRED-508 PO; +VENL150T3 PO; -VENL225T3 PO
[2016-11-17 08:05] VITALS: BP 115/77; PULSE 78; RESP 12; O2SAT 99
--- NOTE | 2016-11-17 08:09 | ED.REPORT ---
HPI-Extremity Problem Lower Date of Service Nov 17, 2016 ED Provider: Dr. Chiu Pt is a 80 year old female with a history of hypothyroid disease, COPD, GERD, osteoarthritis, and osteopenia who presents to the ED complaining of right foot pain and swelling onset two days ago. The pt was standing up out of a chair two days ago when she twisted her right foot and felt an immediate pain, though she did not hear an audible pop. The pain has persisted and worsened to the point that she was hardly able to walk today. The pt also noticed redness over the affected area this morning. Nursing Notes Stated Complaint: FOOT PAIN Chief Complaint: Extremity Trauma Nursing Notes Reviewed: Yes Allergies: Coded Allergies: Penicillins (Verified Allergy, Unknown, 05/14/16) AMOXOCILLIN amoxicillin (Verified Allergy, Unknown, Rash, 05/14/16) Scheduled Aspirin (Aspirin) 81 Mg Tablet 81 MG PO HS Atorvastatin Calcium (Atorvastatin Calcium) 20 Mg Tablet 20 MG PO HS Calcium Carbonate (Calcium) 600 Mg Tablet 600 MG PO DAILY Cyclosporine (Restasis) 1 Each Droperette 1 EACH OP BID Ferrous Sulfate (Iron) 325 Mg Tablet 625 MG PO DAILY Ipratropium/Albuterol Sulfate (Iprat-Albut 0.5-3(2.5) mg/3 mL Inhalant Soln) 3 Ml Ampul.neb 3 ML IH QID Levothyroxine (Levothyroxine) 137 Mcg Tablet 137 MCG PO DAILY Liothyronine Sodium (Liothyronine Sodium) 5 Mcg Tablet 5 MCG PO DAILY Magnesium Oxide (Magnesium) 500 Mg Capsule 500 MG PO HS Multivitamin (Once Daily) 1 Each Tablet 1 EACH PO DAILY Omeprazole (Omeprazole) 20 Mg Capsule.dr 20 MG PO BID Polyvinyl Alcohol/Povidone/Pf (Refresh Classic Eye Drops) 1 Each Droperette 1 EACH OP BID Prednisone (Deltasone) 20 Mg Tablet 40 MG PO DAILY Venlafaxine ER (Venlafaxine ER) 150 Mg Tab.er.24 150 MG PO HS Scheduled PRN Albuterol HFA (Proair HFA) 8.5 Gm Hfa.aer.ad 2 PUFFS INHALATION Q4H PRN PRN For Shortness of Breath Albuterol Neb Soln (Albuterol Neb Soln) 2.5 Mg/3 Ml Vial.neb 2.5 MG INHALATION Q4H PRN PRN For Wheezing General Time Seen by MD: 08:08 Chief Complaint Foot injury right Hx Obtained From: Patient Arrived By: Walk-in Onset Occurred: 2 days ago Symptom Duration: Since onset Location: : Foot right Quality: Painful Recent Healthcare: Recent doctor visit, Recent hospitalization Similar Sx Previous: No Past Medical History Past Medical History Aortic Aneurysm Cataracts Heart murmur Osteoarthritis Depression Osteopenia Emphysema Pneumonia Reports: COPD, GERD Reports: Thyroid disease (Hypothyroid ) Past Surgical History AAA repair Reports: Cholecystectomy Reports: Knee replacement (Left) Smoking History Former Smoker Social History Other Social History: Good social support Ambulatory Status Independent Review of Systems Review of Systems Note: Redness of right foot Constitutional: Denies: Chills Musculoskeletal: Reports: Extremity pain (Right foot ) Skin: Reports Swelling (Right foot), Denies Rash Neurologic: Denies: Confusion, Weakness Complete sys rev & neg: except as marked. Respiratory: Denies: Non-productive cough, Shortness of breath Cardiovascular: Denies: Chest pain GI: Denies: Abdominal pain, Vomiting Physical Exam Initial Vital Signs Vital Signs (First) Date Time Temp Pulse Resp B/P Pulse Ox O2 Delivery O2 Flow Rate FiO2 11/17/16 08:05 36.2 78 12 115/77 99 Room Air Initial VS: Reviewed Lower Extremity / Pelvis / MS: Atraumatic, Full range of motion Ankle / Foot: Neurologic intact, Vascular intact Right lower extremity warmth No edema Redness, swelling and tenderness at the base of the fifth metatarsal Bruising of the medial ankle Capillary refill 2 seconds General/Constitutional: Awake, Alert, No acute distress Respiratory / Chest: Atraumatic, Breath sounds NL, Breath sounds = bilat, No respiratory distress Cardiovascular: Heart rate NL, Regular rhythm, Heart sounds NL, No murmurs Skin: No rash, Warm, Dry Neurologic: Oriented X3, Speech NL, No motor deficits, No sensory deficits Head / Eyes: Atraumatic, Normocephalic, PERRL, EOMI ENT: Atraumatic, Airway patent, Mucous membranes moist Neck: Atraumatic, Supple, Full range of motion Abdomen: Atraumatic, Soft, Non-tender Back: Atraumatic, Inspection NL, Full range of motion Upper Extremity / MS: Atraumatic, Inspection NL, Full range of motion Psychiatric: Affect NL, Mood NL Interpretation & Diagnostics X-Ray Interpretation Xray Interpretation: IMPRESSION: Nondisplaced fracture at the base of the fifth metatarsal. Dictated by: Homero Shearer M.D. on 11/17/2016 at 9:22 Approved by: Homero Shearer M.D. on 11/17/2016 at 9:24 X-Ray Ordered: Foot right Interpretation / Wet Read by: Interpret - Radiologist Re-Eval/Medical Decision Source of Hx: Old records Re-Evaluation/Progress #1: Time of Eval: 09:22 Patient Status: Condition improved Re-Evaluation/Progress Note: Pt rechecked, who is comfortable. Discussed all results. Re-Evaluation/Progress #2: Time of Eval: 09:31 Patient Status: Condition improved Re-Evaluation/Progress Note: Pt rechecked. Informed pt of plan for discharge with follow up. Pt understands and agrees with plan. F/U instructions and RTER warnings given. All questions addressed. Consultation : Referral / Consult Name: Teresa Gomez DPM Call Returned at: 09:29 Organic Chemist: Agrees with plan Note: Discussed pt's case with Dr. Gomez, produce manager. Dr. Gomez agrees with the evaluation and the plan for discharge with a boot and follow up. Counseled Regarding: Diagnosis, Lab results, Need for follow-up, When/why to return to ED Discharge & Departure Impression: Primary Impression: Nondisplaced fracture of fifth right metatarsal bone Encounter type: initial encounter Fracture type: closed Qualified Code: S92.354A - Nondisplaced fracture of fifth metatarsal bone, right foot, initial encounter for closed fracture Additional Impression: Osteopenia Osteopenia location: multiple sites Qualified Code: M85.89 - Other specified disorders of bone density and structure, multiple sites Disposition: Home Discharge Condition All VS Reviewed: Yes Condition: Stable Patient Instructions: Foot Fracture in Adults (ED), Splint Care (ED) Additional Instructions: Thank you for trusting us with your care today Your x-ray revealed a fracture of the base of the fifth meta-tarsal head on the right foot. Please wear the boot continuously until your follow-up with podiatry. It may be removed for showering/bathing and at bedtime. Weightbearing as tolerated. Follow-up with Dr. Teresa Gomez in one week. Her contact is listed below and you can call on Saturday for an appointment. I spoke with her already and she is aware of your injury. He may use ibuprofen or Tylenol as needed for pain. Please return to the ER for new or worsening symptoms. Referrals: Alem Fuller MD (PCP) Teresa Gomez DPM Scribe Attestation Portions of this note were transcribed by Prachi Cast and Geovanna Escobar. I, Dr. Chiu personally performed the history, physical exam and medical decision -making; I reviewed and confirmed the accuracy of the information in the transcribed note. copies to: Alem Fuller MD; Teresa Gomez DPM, Gary R DO Nov 17, 2016 08:09 Prachi Cast Nov 17, 2016 08:20 GEOVANNA ESCOBAR Nov 17, 2016 10:31 Rene Chiu DO Nov 17, 2016 08:09 Prachi Cast Nov 17, 2016 08:20 GEOVANNA ESCOBAR Nov 17, 2016 10:31
--- NOTE | 2016-11-17 09:25 | DRSVH ---
PROCEDURE: X-RAY RIGHT FOOT COMPLETE, MINIMUM THREE VIEWS ([id number]) INDICATIONS: r foot pain, injury TECHNIQUE: 3 views of the foot were acquired. COMPARISON: None. FINDINGS: Bones: Nondisplaced fracture at the base of the fifth metatarsal. Soft tissues: No tibiotalar joint effusion. Achilles tendon appears normal. IMPRESSION: Nondisplaced fracture at the base of the fifth metatarsal. Dictated by: Homero Shearer M.D. on 11/17/2016 at 9:22 Approved by: Homero Shearer M.D. on 11/17/2016 at 9:24
[2016-11-17 09:58] VITALS: BP 118/72; PULSE 74; RESP 14; O2SAT 99
== END 2016-11-17 09:45 | disposition home or self-care (01) ==
LOC: SED 08:03
DX: S92.354A Nondisplaced fracture of fifth metatarsal bone, right foot, initial encounter for closed fracture (principal); M85.89 Other specified disorders of bone density and structure, multiple sites; X50.9XXA Other and unspecified overexertion or strenuous movements or postures, initial encounter; Y93.89 Activity, other specified; Y92.9 Unspecified place or not applicable; Y99.8 Other external cause status; K21.9 Gastro-esophageal reflux disease without esophagitis; Z87.891 Personal history of nicotine dependence; Z79.82 Long term (current) use of aspirin; Z88.0 Allergy status to penicillin